=== PATIENT | female | born 1980 ===

== ENCOUNTER 2018-08-21 05:20 | Day surgery (SDC) | payer OTHER ==
[~2018-08-21 05:20] MED LIST: IBUPROFEN400 MG PO; KAOPECTATE240 MG PO; PRENATAL TABLE1 EAC1 PO; PREPLUS CA-FE1 EACH PO
[2018-08-21] MEDS ORDERED: MACROBID 100 M100 MG PO (10:07)
[2018-08-21] MEDS ORDERED: ULTRACET PO (10:08)
== END 2018-08-21 11:25 | disposition home or self-care (01) ==
LOC: CIR.AMB 05:20
DX: N39.3 Stress incontinence (female) (male) (principal)
CPT/HCPCS: 57288; C1771